=== PATIENT | male | born 1985 | race Caucasian/White ===

== ENCOUNTER → 2021-05-14 | Outpatient (CLI) | payer OTHER ==
[~2021-05-14] MED LIST: LORA.5 PO; OXYACE5T PO; PROM25 PO; RXCLIN PO
== END | disposition home or self-care (01) ==
LOC: LAB 08:30 → LAB SHORT 08:30
DX: B35.1 Tinea unguium (principal)
CPT/HCPCS: 87070

== ENCOUNTER → 2021-08-17 | Outpatient (CLI) | payer OTHER | END | disposition home or self-care (01) | LOC: LAB 08:30 → LAB SHORT 08:30 | DX: B35.1 Tinea unguium (principal) | CPT/HCPCS: 87102; 87106 ==